=== PATIENT | male | born 1960 | race Caucasian/White ===

== ENCOUNTER → 2023-09-13 | Outpatient (CLI) | payer OTHER ==
[~2023-09-13] MED LIST: ARTIFICIAL TEAR15 M6 BOTHEYES; CEPH500 PO; Calcium Acetat667 MG PO; HYDACE5 PO; MIDODRINE HCL10 M1 PO; MULVITB PO; Percocet 5-3251 EACH PO; SENN187 PO; TAMSULOSIN HCL0.4 M1 PO; Vitamin D1000 UNI1 PO
== END | disposition home or self-care (01) ==
LOC: LAB 16:51 → LAB SHORT 16:51
DX: R33.9 Retention of urine, unspecified (principal)
CPT/HCPCS: 87086

== ENCOUNTER 2023-09-18 08:02 | Day surgery (SDC) | payer OTHER ==
[~2023-09-18] VITALS: Ht 172.7 cm; Wt 66.0 kg
[2023-09-18] MEDS ORDERED: LUPRON DEPOT45 M1 IM (08:22)
[2023-09-18] MEDS ORDERED: Rena-Vite Tabl0.8 MG PO ×2 (08:23→08:53)
[2023-09-18 08:40] VITALS: BP 106/70
[2023-09-18] MEDS ORDERED: SULFAMETHOXAZO1 EAC1 PO (08:54)
[2023-09-18] MEDS ORDERED: NS 1,000 ML IV ONE (09:55)
[2023-09-18] MEDS ORDERED: NS 500 ML IV ONE (10:08)
[2023-09-18] MEDS ORDERED: FentaNYL Citrate 50 MCG/ML 2 ML Injection ONE (10:22)
[2023-09-18] MEDS ORDERED: Midazolam HCl 1MG / ML 2ML Vial ONE (10:23)
[2023-09-18 11:19] VITALS: BP 115/63
--- NOTE | 2023-09-18 11:45 | NUR ---
PT AND S/O VERBALIZES UNDERSTANDING WRITTEN AND VERBAL INSTRUCTIONS. PT DENIES QUESTIONS OR CONCERNS. VSS. NADN. PT BILATERAL NEPH TUBES IN PLACE, C/D/I. PT IV DC'D. CATH INTACT. PRESSURE DSG APPLIED. PT DC TO HOME VIA WC BY S/O
== END 2023-09-18 12:00 | disposition home or self-care (01) ==
LOC: MHTC 08:02
DX: Z43.6 Encounter for attention to other artificial openings of urinary tract (principal); N13.30 Unspecified hydronephrosis; C61 Malignant neoplasm of prostate; N18.6 End stage renal disease
CPT/HCPCS: 50435; 99152; 99153; C1729; C1769; J2250; J3010; J7030; J7040; Q9967

== ENCOUNTER 2024-01-25 06:04 | Day surgery (SDC) | payer OTHER ==
[~2024-01-25] VITALS: Ht 172.7 cm; Wt 64.0 kg
[~2024-01-25 06:04] MED LIST changes: +LUPRON DEPOT45 M1 IM; +Rena-Vite Tabl0.8 MG PO; +SULFAMETHOXAZO1 EAC1 PO
[2024-01-25] MEDS ORDERED: PRED5 PO (06:55)
[2024-01-25] MEDS ORDERED: YONSA125 MG PO (06:56)
[2024-01-25] MEDS ORDERED: ROLAIDS ADV 101 EACH PO (06:58)
[2024-01-25] MEDS ORDERED: NS 250 ML IV ONE (06:58)
[2024-01-25 07:01] VITALS: BP 166/79
[2024-01-25 08:40] VITALS: BP 169/92
--- NOTE | 2024-01-25 08:45 | NUR ---
ASSUMED CARE OF PT POST PROCEDURE. PT AWAKE AND CONVERSING APPROPRIATELY (NO SEDATION GIVEN); DENIES PAIN POST PROCEDURE. MONITOR SR 70'S, B/P 169/92, SPO2 99 % RA. R FLANK NEPH TUBE SITE NO SWELLING/HEMATOMA, CONNECTED TO DRAIN BAG-DRAINING YELLOW URINE. L NEPH TUBE SITE NO SWELLING/HEMATOMA, CONNECTED TO DRAIN BAG-DRAINING YELLOW URINE. PT'S AT BEDSIDE, ATTENTIVE.
--- NOTE | 2024-01-25 08:55 | NUR ---
PT DRESSED SELF WITHOUT ISSUE, SITES UNCHANGED. PT AND RECEIVED DISCHARGE INSTRUCTIONS, MED LIST AND AFTER CARE INSTRUCTIONS; VERBALIZED GOOD UNDERSTANDING. PT LEFT FACILITY VIA AMB, CONDITION STABLE.
== END 2024-01-25 08:55 | disposition home or self-care (01) ==
LOC: MHTC 06:04
DX: Z43.6 Encounter for attention to other artificial openings of urinary tract (principal); N13.30 Unspecified hydronephrosis; C61 Malignant neoplasm of prostate; Z79.52 Long term (current) use of systemic steroids; Z79.899 Other long term (current) drug therapy
CPT/HCPCS: 50435; C1729; C1769; J7050; Q9967

== ENCOUNTER 2024-04-18 06:01 | Day surgery (SDC) | payer MEDICARE, OTHER ==
[~2024-04-18] VITALS: Ht 20.3 cm; Wt 66.0 kg
[~2024-04-18 06:01] MED LIST changes: +PRED5 PO; +ROLAIDS ADV 101 EACH PO; +YONSA125 MG PO
[2024-04-18 06:31] VITALS: BP 138/78
[2024-04-18] MEDS ORDERED: NS 250 ML IV ONE (06:32)
[2024-04-18] MEDS ORDERED: FLUT.05NI (06:38)
[2024-04-18] MEDS ORDERED: Amlodipine Bes2.5 MG PO (06:39)
[2024-04-18 06:41] VITALS: BP 138/78
[2024-04-18 06:45] VITALS: BP 134/75
[2024-04-18 07:45] VITALS: BP 178/83
--- NOTE | 2024-04-18 07:50 | NUR ---
PATIENT DISCHARGED HOME. VERBAL DISCHARGE INSTRUCTIONS GIVEN. BILATERAL NEPH TUBES IN PLACE. VSS ON RA. NO SEDATION GIVEN, PATIENT ABLE TO AMBULATE WITHOUT DIFFICULTY.
== END 2024-04-18 09:33 | disposition home or self-care (01) ==
LOC: MHTC 06:01
DX: Z43.6 Encounter for attention to other artificial openings of urinary tract (principal); N13.30 Unspecified hydronephrosis; C61 Malignant neoplasm of prostate
CPT/HCPCS: 50435; C1729; C1769; J7050; Q9967

== ENCOUNTER → 2024-05-16 | Outpatient (CLI) | payer OTHER ==
[~2024-05-16] MED LIST changes: +Amlodipine Bes2.5 MG PO; +FLUT.05NI
[2024-05-16 09:48] LABS: BASOPHILS ABSOLUTE AUTO 0.02 K/mm3 (0.00-0.23); BASOPHILS PERCENT AUTO 1 % (0-2); EOSINOPHILS ABSOLUTE AUTO 0.05 K/mm3 (0.00-0.68); EOSINOPHILS PERCENT AUTO 3 % (0-6); Hematocrit 24.5 % (37.0-53.0); Hemoglobin 8.3 g/dL (13.5-17.5); IMMATURE GRAN ABSOLUTE AUTO 0.04 K/mm3 (0.00-0.10); IMMATURE GRAN PERCENT AUTO 2 % (0-1); LYMPHOCYTES ABSOLUTE AUTO 1.03 K/mm3 (0.84-5.20); LYMPHOCYTES PERCENT AUTO 60 % (21-46); MONOCYTES ABSOLUTE AUTO 0.25 K/mm3 (0.16-1.47); MONOCYTES PERCENT AUTO 15 % (4-13); Mean Corpuscular HGB 34.4 pg (26.0-34.0); Mean Corpuscular HGB Conc 33.9 g/dL (31.5-36.5); Mean Corpuscular Volume 102 fL (80-100); Mean Platelet Volume 11.1 fL (9.1-12.4); NEUTROPHILS ABSOLUTE AUTO 0.33 K/mm3 (1.96-9.15); NEUTROPHILS PERCENT AUTO 19 % (41-73); Platelet Count 179 K/mm3 (150-400); RDW Coefficient Variation 15.7 % (11.7-14.2); RDW Standard Deviation 57.8 fL (35.1-46.3); Red Blood Cell Count 2.41 M/mm3 (4.30-5.90); White Blood Cell Count 1.72 K/mm3 (4.00-11.30)
[2024-05-16 09:56] LABS: Alanine Aminotransfer (ALT/SGP 22 U/L (12-78); Albumin, Blood 3.4 g/dL (3.4-5.0); Albumin/Globulin Ratio 1.1 (0.8-1.8); Alk Phos 49 U/L (50-136); Anion Gap 12 mmol/L (3-11); Aspartate Aminotrans (AST/SGOT 14 U/L (12-37); Bilirubin, Total 0.3 mg/dL (0.1-1.0); Blood Urea Nitrogen 40 mg/dL (8-24); Bun/Creatinine Ratio 6.3 (12.0-20.0); CO2, Blood 32 mmol/L (21-32); Calcium, Blood 9.5 mg/dL (8.5-10.1); Chloride, Blood 96 mmol/L (98-108); Creatinine, Blood 6.39 mg/dL (0.60-1.20); Globulin, Blood 3.1 g/dL (2.2-4.0); Glomerular Filtration Rate 9 (60-); Glucose, Blood 95 mg/dL (70-99); Potassium, Blood 3.7 mmol/L (3.5-5.5); Prostate Specific Antigen 0.172 ng/mL (0.000-4.000); Sodium, Blood 136 mmol/L (136-145); Total Protein, Blood 6.5 g/dL (6.4-8.2)
== END ==
LOC: LAB 09:19 → LAB SHORT 09:19
PROVIDERS: Internal Medicine Hematology & Oncology
DX: C61 Malignant neoplasm of prostate (principal); C79.51 Secondary malignant neoplasm of bone
CPT/HCPCS: 80053; 84153; 85025

== ENCOUNTER → 2024-05-19 | Outpatient (CLI) | payer OTHER ==
[2024-05-19 09:08] LABS: Hematocrit 27.5 % (37.0-53.0); Hemoglobin 9.3 g/dL (13.5-17.5); Mean Corpuscular HGB 33.8 pg (26.0-34.0); Mean Corpuscular HGB Conc 33.8 g/dL (31.5-36.5); Mean Corpuscular Volume 100 fL (80-100); Mean Platelet Volume 10.8 fL (9.1-12.4); Platelet Count 211 K/mm3 (150-400); RDW Coefficient Variation 15.5 % (11.7-14.2); RDW Standard Deviation 57.6 fL (35.1-46.3); Red Blood Cell Count 2.75 M/mm3 (4.30-5.90); White Blood Cell Count 4.25 K/mm3 (4.00-11.30)
[2024-05-19 09:29] LABS: Alanine Aminotransfer (ALT/SGP 21 U/L (12-78); Albumin, Blood 3.5 g/dL (3.4-5.0); Albumin/Globulin Ratio 1.1 (0.8-1.8); Alk Phos 53 U/L (50-136); Anion Gap 12 mmol/L (3-11); Aspartate Aminotrans (AST/SGOT 17 U/L (12-37); BAND PERCENT MAN 4 % (0-8); BASOPHILS ABSOLUTE MAN 0.04 K/mm3 (0.00-0.23); BASOPHILS PERCENT MAN 1 % (0-2); BLASTS PERCENT MAN 1 % (0-0); Bilirubin, Total 0.3 mg/dL (0.1-1.0); Blood Urea Nitrogen 65 mg/dL (8-24); Bun/Creatinine Ratio 8.7 (12.0-20.0); CO2, Blood 30 mmol/L (21-32); Calcium, Blood 9.4 mg/dL (8.5-10.1); Chloride, Blood 99 mmol/L (98-108); Creatinine, Blood 7.48 mg/dL (0.60-1.20); EOSINOPHILS PERCENT MAN 0 % (0-6); Globulin, Blood 3.2 g/dL (2.2-4.0); Glomerular Filtration Rate 8 (60-); Glucose, Blood 107 mg/dL (70-99); LYMPHOCYTES ABSOLUTE MAN 1.99 K/mm3 (0.84-5.20); LYMPHOCYTES PERCENT MAN 47 % (21-46); METAMYELOCYTE ABSOLUTE MAN 0.21 K/mm3 (0.00-0.00); METAMYELOCYTE PERCENT MAN 5 % (0-0); MONOCYTES ABSOLUTE MAN 0.29 K/mm3 (0.16-1.47); MONOCYTES PERCENT MAN 7 % (4-13); MYELOCYTE ABSOLUTE MAN 0.72 K/mm3 (0.00-0.00); MYELOCYTE PERCENT MAN 17 % (0-0); NEUTROPHILS ABSOLUTE MAN 0.85 K/mm3 (1.96-9.15); PROMYELOCYTE ABSOLUTE MAN 0.08 K/mm3 (0.00-0.00); PROMYELOCYTE PERCENT MAN 2 % (0-0); Potassium, Blood 3.5 mmol/L (3.5-5.5); Prostate Specific Antigen 0.169 ng/mL (0.000-4.000); SEG NEUTROPHILS PERCENT MAN 16 % (41-73); Sodium, Blood 137 mmol/L (136-145); TOTAL CELLS COUNTED 100; Total Protein, Blood 6.7 g/dL (6.4-8.2)
== END ==
LOC: LAB 08:30 → LAB SHORT 08:30
PROVIDERS: Internal Medicine Hematology & Oncology
DX: C61 Malignant neoplasm of prostate (principal); C79.51 Secondary malignant neoplasm of bone
CPT/HCPCS: 80053; 84153; 85025

== ENCOUNTER → 2024-05-30 | Outpatient (CLI) | payer OTHER ==
[2024-05-30 10:55] LABS: Hematocrit 23.2 % (37.0-53.0); Hemoglobin 7.8 g/dL (13.5-17.5); Mean Corpuscular HGB 34.2 pg (26.0-34.0); Mean Corpuscular HGB Conc 33.6 g/dL (31.5-36.5); Mean Corpuscular Volume 102 fL (80-100); Mean Platelet Volume 11.7 fL (9.1-12.4); Platelet Count 134 K/mm3 (150-400); RDW Standard Deviation 57.5 fL (35.1-46.3); Red Blood Cell Count 2.28 M/mm3 (4.30-5.90); White Blood Cell Count 31.99 K/mm3 (4.00-11.30)
[2024-05-30 11:37] LABS: BASOPHILS PERCENT MAN 0 % (0-2); EOSINOPHILS PERCENT MAN 0 % (0-6); LYMPHOCYTES ABSOLUTE MAN 0.31 K/mm3 (0.84-5.20); LYMPHOCYTES PERCENT MAN 1 % (21-46); MONOCYTES PERCENT MAN 0 % (4-13); NEUTROPHILS ABSOLUTE MAN 31.67 K/mm3 (1.96-9.15); SEG NEUTROPHILS PERCENT MAN 99 % (41-73); TOTAL CELLS COUNTED 100
[2024-05-30 12:39] LABS: Alanine Aminotransfer (ALT/SGP 19 U/L (12-78); Albumin, Blood 3.3 g/dL (3.4-5.0); Albumin/Globulin Ratio 1.2 (0.8-1.8); Alk Phos 104 U/L (50-136); Anion Gap 15 mmol/L (3-11); Aspartate Aminotrans (AST/SGOT 19 U/L (12-37); Bilirubin, Total 0.5 mg/dL (0.1-1.0); Blood Urea Nitrogen 41 mg/dL (8-24); Bun/Creatinine Ratio 10.2 (12.0-20.0); CO2, Blood 28 mmol/L (21-32); Calcium, Blood 8.8 mg/dL (8.5-10.1); Chloride, Blood 96 mmol/L (98-108); Creatinine, Blood 4.03 mg/dL (0.60-1.20); Globulin, Blood 2.7 g/dL (2.2-4.0); Glomerular Filtration Rate 16 (60-); Glucose, Blood 95 mg/dL (70-99); Potassium, Blood 3.6 mmol/L (3.5-5.5); Prostate Specific Antigen 0.154 ng/mL (0.000-4.000); Sodium, Blood 135 mmol/L (136-145)
== END | disposition home or self-care (01) ==
LOC: LAB 08:45 → LAB SHORT 08:45
PROVIDERS: Internal Medicine Nephrology
DX: C61 Malignant neoplasm of prostate (principal); N18.9 Chronic kidney disease, unspecified
CPT/HCPCS: 80053; 84153; 85025

== ENCOUNTER → 2024-06-06 | Outpatient (CLI) | payer OTHER ==
[2024-06-06 08:05] LABS: Hemoglobin 8.1 g/dL (13.5-17.5); Mean Corpuscular HGB 34.8 pg (26.0-34.0); Mean Corpuscular HGB Conc 33.8 g/dL (31.5-36.5); Mean Corpuscular Volume 103 fL (80-100); Mean Platelet Volume 11.4 fL (9.1-12.4); NRBC ABSOLUTE 0.06 K/mm3 (0.00-0.02); NRBC Auto 0.1 /100 WBC (0.0-0.2); Platelet Count 246 K/mm3 (150-400); RDW Coefficient Variation 16.8 % (11.7-14.2); RDW Standard Deviation 61.8 fL (35.1-46.3); Red Blood Cell Count 2.33 M/mm3 (4.30-5.90); White Blood Cell Count 41.45 K/mm3 (4.00-11.30)
[2024-06-06 08:32] LABS: BASOPHILS PERCENT MAN 0 % (0-2); EOSINOPHILS PERCENT MAN 0 % (0-6); MONOCYTES ABSOLUTE MAN 2.07 K/mm3 (0.16-1.47); MONOCYTES PERCENT MAN 5 % (4-13); TOTAL CELLS COUNTED 100
[2024-06-06 08:33] LABS: PROMYELOCYTE ABSOLUTE MAN 0.82 K/mm3 (0.00-0.00); PROMYELOCYTE PERCENT MAN 2 % (0-0)
[2024-06-06 08:35] LABS: BAND PERCENT MAN 6 % (0-8); BLASTS PERCENT MAN 1 % (0-0); LYMPHOCYTES ABSOLUTE MAN 3.73 K/mm3 (0.84-5.20); LYMPHOCYTES PERCENT MAN 9 % (21-46); METAMYELOCYTE PERCENT MAN 7 % (0-0); MYELOCYTE ABSOLUTE MAN 1.65 K/mm3 (0.00-0.00); MYELOCYTE PERCENT MAN 4 % (0-0); NEUTROPHILS ABSOLUTE MAN 29.84 K/mm3 (1.96-9.15); SEG NEUTROPHILS PERCENT MAN 66 % (41-73)
[2024-06-06 08:37] LABS: Prostate Specific Antigen 0.157 ng/mL (0.000-4.000)
[2024-06-06 08:38] LABS: Alanine Aminotransfer (ALT/SGP 21 U/L (12-78); Albumin, Blood 3.7 g/dL (3.4-5.0); Albumin/Globulin Ratio 1.3 (0.8-1.8); Alk Phos 95 U/L (50-136); Anion Gap 9 mmol/L (3-11); Aspartate Aminotrans (AST/SGOT 28 U/L (12-37); Bilirubin, Total 0.3 mg/dL (0.1-1.0); Blood Urea Nitrogen 46 mg/dL (8-24); CO2, Blood 32 mmol/L (21-32); Calcium, Blood 8.8 mg/dL (8.5-10.1); Chloride, Blood 97 mmol/L (98-108); Creatinine, Blood 6.53 mg/dL (0.60-1.20); Globulin, Blood 2.9 g/dL (2.2-4.0); Glomerular Filtration Rate 9 (60-); Glucose, Blood 113 mg/dL (70-99); Sodium, Blood 134 mmol/L (136-145); Total Protein, Blood 6.6 g/dL (6.4-8.2)
== END ==
LOC: LAB SHORT 07:00 → LAB 07:00
PROVIDERS: Internal Medicine Hematology & Oncology
DX: C61 Malignant neoplasm of prostate (principal)
CPT/HCPCS: 80053; 84153; 85025

== ENCOUNTER → 2024-06-18 | Outpatient (CLI) | payer OTHER ==
[~2024-06-18] MED LIST changes: +ELIGARD7.5 MG SC
== END ==
LOC: LAB 09:15 → LAB SHORT 09:15
DX: N18.6 End stage renal disease (principal); D64.9 Anemia, unspecified
CPT/HCPCS: 85018

== ENCOUNTER 2024-06-22 00:34 | Day surgery (SDC) | payer OTHER ==
[2024-06-22] VITALS (7 sets, daily range): BP systolic 104–153; BP diastolic 58–73
[~2024-06-22 00:34] MED LIST changes: -ELIGARD7.5 MG SC
[2024-06-22] MEDS ORDERED: NS 250 ML IV SCH (06:50)
[2024-06-22] MEDS ORDERED: SENN187 PO (14:33)
[2024-06-22] MEDS ORDERED: ELIGARD7.5 MG SC (14:35)
--- NOTE | 2024-06-22 17:55 | NUR ---
PT ESCORTED TO PRIVATE CAR VIA WHEELCHAIR BY .
== END 2024-06-22 17:32 | disposition home or self-care (01) ==
LOC: ATC 00:34
DX: N18.6 End stage renal disease (principal); D63.1 Anemia in chronic kidney disease; Z79.899 Other long term (current) drug therapy
CPT/HCPCS: 36415; 36430; 86850; 86900; 86901; 86923; J7050; P9016

== ENCOUNTER 2024-06-27 12:47 | Observation (INO) | payer OTHER ==
[~2024-06-27] VITALS: Ht 170.2 cm; Wt 63.6 kg
[~2024-06-27 12:47] MED LIST changes: +ELIGARD7.5 MG SC
[2024-06-27 14:04] LABS: Hematocrit 27.9 % (37.0-53.0); Hemoglobin 9.2 g/dL (13.5-17.5); Mean Corpuscular HGB 33.7 pg (26.0-34.0); Mean Corpuscular Volume 102 fL (80-100); Mean Platelet Volume 10.5 fL (9.1-12.4); NRBC ABSOLUTE 0.03 K/mm3 (0.00-0.02); Platelet Count 187 K/mm3 (150-400); RDW Coefficient Variation 15.9 % (11.7-14.2); RDW Standard Deviation 58.4 fL (35.1-46.3); Red Blood Cell Count 2.73 M/mm3 (4.30-5.90)
[2024-06-27 14:09] LABS: Albumin, Blood 3.5 g/dL (3.4-5.0); Albumin/Globulin Ratio 1.1 (0.8-1.8); Bilirubin, Total 0.3 mg/dL (0.1-1.0); Bun/Creatinine Ratio 3.7 (12.0-20.0); Calcium, Blood 8.9 mg/dL (8.5-10.1); Creatinine, Blood 2.43 mg/dL (0.60-1.20); Globulin, Blood 3.3 g/dL (2.2-4.0); Potassium, Blood 3.4 mmol/L (3.5-5.5); Total Protein, Blood 6.8 g/dL (6.4-8.2)
[2024-06-27 14:11] LABS: White Blood Cell Count 61.99 K/mm3 (4.00-11.30)
[2024-06-27 14:13] LABS: International Normalized Ratio 0.91; Prothrombin Time Results 9.8 Sec (9.7-11.5)
[2024-06-27 14:24] LABS: BAND PERCENT MAN 13 % (0-8); BASOPHILS PERCENT MAN 0 % (0-2); EOSINOPHILS PERCENT MAN 0 % (0-6); LYMPHOCYTES ABSOLUTE MAN 1.85 K/mm3 (0.84-5.20); LYMPHOCYTES PERCENT MAN 3 % (21-46); METAMYELOCYTE ABSOLUTE MAN 1.85 K/mm3 (0.00-0.00); METAMYELOCYTE PERCENT MAN 3 % (0-0); MONOCYTES PERCENT MAN 0 % (4-13); NEUTROPHILS ABSOLUTE MAN 53.93 K/mm3 (1.96-9.15); SEG NEUTROPHILS PERCENT MAN 74 % (41-73); TOTAL CELLS COUNTED 100
[2024-06-27 14:25] LABS: MYELOCYTE ABSOLUTE MAN 3.09 K/mm3 (0.00-0.00); MYELOCYTE PERCENT MAN 5 % (0-0); PROMYELOCYTE ABSOLUTE MAN 1.23 K/mm3 (0.00-0.00); PROMYELOCYTE PERCENT MAN 2 % (0-0)
[2024-06-27] MEDS ORDERED: ONDA4 PO (14:25)
[2024-06-27] MEDS ORDERED: SEVEC800 PO (14:26)
[2024-06-27] MEDS ORDERED: Pantoprazole Sodium 40 MG Injection IV ONE (15:55)
[2024-06-27] MEDS ORDERED: Midodrine 5 MG Tab PO PRN (17:20)
[2024-06-27] MEDS ORDERED: AmLODIPine Besylate 5 MG Tab PO PRN (17:20)
[2024-06-27] MEDS ORDERED: Sevelamer Carbonate 800 MG Tab PO SCH (17:30)
[2024-06-27] MEDS ORDERED: Tamsulosin HCl 0.4 MG Cap PO SCH (18:00)
[2024-06-27 21:14] VITALS: BP 136/82
--- NOTE | 2024-06-27 21:41 | NUR ---
PATIENT IS A NEW ADMIT FROM THE ED. ALERT ORIENTED WITH SELF TRANSFER FROM [facility] TO BED. ED RN SOHEILA REPORTS BILATERAL NEPHROSTOMY TUBES AND SOTOMAYOR WITH LEG BAG, SELF CARE. DENIES CHEST PAIN, SOB, AND N/V. PERMA CATH RU CHEST. NPO >MIDNIGHT FOR ENDOSCOPY. FAMILY PRESENT ON ADMIT. SPOUSE REPORTING SHE WILL STAY OVERNIGHT. ORIENTED TO ROOM AND CALL LIGHT. LADY.
--- NOTE | 2024-06-27 22:16 | NUR ---
ONCOLOGY CONSULT CALLED INTO DR CRISTIN THAKKAR ([facility]) ANSWERING SERVICE.
--- NOTE | 2024-06-28 04:02 | NUR ---
SHIFT SUMMARY PATIENT HAD NO ACUTE CHANGES. ALERT ORIENTED AND INDEPENDENT IN ROOM . DENIES CHEST PAIN, SOB, AND N/V. VSS/AFEBRILE. NPO FOR PROCEDURE. PERMA CATH RIGHT UPPER CHEST. SPOUSE STAYING OVERNIGHT. CALL LIGHT IN REACH. BED IN LOWEST POSITION. WILL CONTINUE TO MONITOR UNTIL DAY SHIFT NURSE ASSUMES CARE.
[2024-06-28 04:36] VITALS: BP 126/62
[2024-06-28] MEDS ORDERED: Pantoprazole Sodium 40 MG Injection IV SCH (06:00)
[2024-06-28 07:02] LABS: Hematocrit 29.4 % (37.0-53.0); Hemoglobin 9.6 g/dL (13.5-17.5); Mean Corpuscular HGB 33.8 pg (26.0-34.0); Mean Corpuscular HGB Conc 32.7 g/dL (31.5-36.5); Mean Corpuscular Volume 104 fL (80-100); Mean Platelet Volume 10.4 fL (9.1-12.4); Platelet Count 163 K/mm3 (150-400); RDW Coefficient Variation 15.8 % (11.7-14.2); Red Blood Cell Count 2.84 M/mm3 (4.30-5.90); White Blood Cell Count 44.11 K/mm3 (4.00-11.30)
[2024-06-28 07:10] VITALS: BP 142/72
[2024-06-28 07:39] LABS: BAND PERCENT MAN 8 % (0-8); BASOPHILS PERCENT MAN 0 % (0-2); EOSINOPHILS PERCENT MAN 1 % (0-6); LYMPHOCYTES PERCENT MAN 13 % (21-46); METAMYELOCYTE PERCENT MAN 11 % (0-0); MONOCYTES PERCENT MAN 0 % (4-13); MYELOCYTE PERCENT MAN 3 % (0-0); PROMYELOCYTE PERCENT MAN 1 % (0-0); SEG NEUTROPHILS PERCENT MAN 63 % (41-73); TOTAL CELLS COUNTED 100
[2024-06-28 07:41] LABS: Bun/Creatinine Ratio 5.1 (12.0-20.0); Creatinine, Blood 3.9 mg/dL (0.60-1.20); Potassium, Blood 3.4 mmol/L (3.5-5.5)
[2024-06-28] MEDS ORDERED: OxyCODONE 5 mg/Acetamin 325 mg TABLET PO PRN (08:00)
[2024-06-28] MEDS ORDERED: ABIRATERONE PO SCH (09:00)
[2024-06-28] MEDS ORDERED: Cholecalciferol 1000 Unit Tablet (=25MCG) PO SCH (09:00)
[2024-06-28] MEDS ORDERED: Potassium Chloride 20 MEQ TabCR PO ONE (09:35)
[2024-06-28] MEDS ORDERED: Lactated Ringer's 1,000 ML IV SCH (11:40)
--- NOTE | 2024-06-28 12:02 | NUR ---
SPOKE TO DR CHA- PT HAD A DOSE OF POTASSIUM ORDERED AFTER HE RECIEVED AM MEDS. DOSE WAS LATE. SPOKE TO DR CHA AND HE SAID TO WAIT UNTIL AFTER THE PROCEDURE, THEN GIVE THE DOSE.
[2024-06-28 12:09] VITALS: BP 131/80
--- NOTE | 2024-06-28 12:14 | NUR ---
PATIENT ADMITS TO EATING A BITE OF A DONUT AND SIPS OF WATER AT [address] CHA AND ANESTHESIA PROVIDER, KATT ZUNIGA NOTIFIED OF NPO STATUS. NO NEW ORDERS OR PLAN TO DELAY PROCEDURE.
[2024-06-28] MEDS ORDERED: NS 1,000 ML IV SCH (12:20)
[2024-06-28] MEDS ORDERED: propofoL 20 ML IV ONE (12:32)
--- NOTE | 2024-06-28 12:34 | NUR ---
06/28/24 1234 Nika Tuttle MONITOR INTACT WITH CONTINUOUS PULSE OXIMETRY, CONTINUOUS END TITAL CO2, 3-LEAD EKG AND INTERMITTENT BLOOD PRESSURE.
[2024-06-28 12:48] VITALS: BP 113/64
[2024-06-28] MEDS ORDERED: Potassium Chloride 10 Meq Tablet SA PO ONE (13:00)
[2024-06-28 13:04] VITALS: BP 143/77
[2024-06-28] MEDS ORDERED: PANT40 PO (13:25)
--- NOTE | 2024-06-28 14:48 | NUR ---
DISCHARGE NOTE- PT DISCHARGED HOME. VERBAL AND WRITTEN DISCHARGE EDUCATION PROVIDED AND THE PT AND SPOUSE ACKNOWLEDGED UNDERSATANDING OF THEM. PT IV WAS DC'D PRIRO TO DISCHARGE BY THE [employer]EL[employer]. PT DECLINED ANY FURTHER MEDS OR TREATMENT. PT WAS ESCORTED OUT VIA WC BY THE [employer]ELOPER, NO S&S OF DISTRESS NOTED AT THE TIME OF DISCHARGE.
[2024-06-28] MEDS ORDERED: Pantoprazole Sodium 40 MG Tab PO SCH (16:30)
== END 2024-06-28 14:13 | disposition home or self-care (01) ==
LOC: ER 12:47 → ERHOLD 12:48 → ER 17:15 → MEDS 17:15 → ERHOLD 17:15 → MEDS 17:15 → ERHOLD 21:11 → MEDS 06-28 14:13
PROVIDERS: Student in an Organized Health Care Education/Training Program; Surgery; ADMIT Family Medicine
PROC: 0DB68ZX Excision of Stomach, Via Natural or Artificial Opening Endoscopic, Diagnostic (ICD-10-PCS; principal; 2024-06-28 12:00)
DX: K25.9 Gastric ulcer, unspecified as acute or chronic, without hemorrhage or perforation (principal); D64.9 Anemia, unspecified; N18.6 End stage renal disease; Z99.2 Dependence on renal dialysis; Z79.899 Other long term (current) drug therapy
CPT/HCPCS: 36415; 80048; 80053; 82272; 85025; 85610; 85730; 86850; 86900; 86901; 88305; 88342; 96374; 96376; 99285-25; A9270; G0378; J2470; J2704; J7030

== ENCOUNTER 2024-07-03 20:25 | Emergency (ER) | payer OTHER ==
[~2024-07-03] VITALS: Ht 172.7 cm; Wt 70.3 kg
[~2024-07-03 20:25] MED LIST changes: +ONDA4 PO; +PANT40 PO; +SEVEC800 PO
[2024-07-03] MEDS ORDERED: Acetaminophen 500 MG Tab PO ONE (20:50)
[2024-07-03 21:12] LABS: Hematocrit 25.3 % (37.0-53.0); Hemoglobin 8.2 g/dL (13.5-17.5); Mean Corpuscular HGB 32.5 pg (26.0-34.0); Mean Corpuscular HGB Conc 32.4 g/dL (31.5-36.5); Mean Corpuscular Volume 100 fL (80-100); Mean Platelet Volume 11.3 fL (9.1-12.4); Platelet Count 99 K/mm3 (150-400); RDW Coefficient Variation 15.5 % (11.7-14.2); RDW Standard Deviation 56.4 fL (35.1-46.3); Red Blood Cell Count 2.52 M/mm3 (4.30-5.90); White Blood Cell Count 16.44 K/mm3 (4.00-11.30)
[2024-07-03 21:27] LABS: Albumin, Blood 3.4 g/dL (3.4-5.0); Albumin/Globulin Ratio 1.1 (0.8-1.8); Bilirubin, Total 0.5 mg/dL (0.1-1.0); Bun/Creatinine Ratio 4.4 (12.0-20.0); Calcium, Blood 9.3 mg/dL (8.5-10.1); Creatinine, Blood 5.46 mg/dL (0.60-1.20); Globulin, Blood 3.1 g/dL (2.2-4.0); Potassium, Blood 3.7 mmol/L (3.5-5.5); Total Protein, Blood 6.5 g/dL (6.4-8.2)
[2024-07-03 21:51] LABS: BASOPHILS PERCENT MAN 0 % (0-2); EOSINOPHILS ABSOLUTE MAN 0.16 K/mm3 (0.00-0.68); EOSINOPHILS PERCENT MAN 1 % (0-6); LYMPHOCYTES ABSOLUTE MAN 1.31 K/mm3 (0.84-5.20); LYMPHOCYTES PERCENT MAN 8 % (21-46); TOTAL CELLS COUNTED 100
[2024-07-03 21:52] LABS: BAND PERCENT MAN 3 % (0-8); METAMYELOCYTE ABSOLUTE MAN 0.16 K/mm3 (0.00-0.00); METAMYELOCYTE PERCENT MAN 1 % (0-0); MONOCYTES ABSOLUTE MAN 0.32 K/mm3 (0.16-1.47); MONOCYTES PERCENT MAN 2 % (4-13); MYELOCYTE ABSOLUTE MAN 0.49 K/mm3 (0.00-0.00); MYELOCYTE PERCENT MAN 3 % (0-0); NEUTROPHILS ABSOLUTE MAN 13.97 K/mm3 (1.96-9.15); SEG NEUTROPHILS PERCENT MAN 82 % (41-73)
[2024-07-04] MEDS ORDERED: Ondansetron HCl 2 MG / ML 2ML Vial IV ONE (03:55)
[2024-07-04] MEDS ORDERED: FentaNYL Citrate 50 MCG/ML 2 ML Injection IV PRN (04:10)
[2024-07-04 05:27] LABS: Source, Urine Foley catheter
[2024-07-04 05:33] LABS: Appearance, Urine Turbid (Clear); Bilirubin, Urine Neg (Neg); Blood, Urine 5+ (Neg); Color, Urine Yellow (P-Yellow); Glucose Qualitative, Urine Neg (Neg); Ketones, Urine Neg (Neg); Leukocyte Esterase, Urine 3+ (Neg); Nitrite, Urine Neg (Neg); Protein, Urine 4+ (Neg); Specific Gravity, Urine 1.015 (1.003-1.022); Urobilinogen, Urine NORM (Normal)
[2024-07-04 05:48] LABS: Amorphous Light (0-Heavy); Bacteria Many /hpf; Red Blood Cells, Urine 50-100 /hpf (0-2); Squamous Epithelial Cells Rare /hpf (Few); White Blood Cells, Urine 50-100 /hpf (0-5)
[2024-07-04] MEDS ORDERED: Cefpodoxime Proxetil 200 MG Tab PO ONE (05:55)
[2024-07-04] MEDS ORDERED: ONDA4ODT MM (05:56)
[2024-07-04] MEDS ORDERED: CEFP200 PO (05:56)
[2024-07-04] MEDS ORDERED: CIPR500 PO (06:12)
== END 2024-07-04 06:19 | disposition home or self-care (01) ==
LOC: ER 20:25
PROVIDERS: Emergency Medicine
DX: T83.511A Infection and inflammatory reaction due to indwelling urethral catheter, initial encounter (principal); D72.829 Elevated white blood cell count, unspecified; N18.6 End stage renal disease; Z99.2 Dependence on renal dialysis; Z79.899 Other long term (current) drug therapy; Z59.89 Other problems related to housing and economic circumstances
CPT/HCPCS: 36415; 74176; 80053; 81001; 83605; 85025; 87040; 87077; 87086; 87186; 96374; 99284-25; J2405

== ENCOUNTER → 2024-07-04 | Outpatient (CLI) | payer OTHER ==
[~2024-07-04] MED LIST changes: +CEFP200 PO; +CIPR500 PO; +ONDA4ODT MM
== END | disposition home or self-care (01) ==
LOC: LAB SHORT 11:05 → LAB 11:05
DX: A49.9 Bacterial infection, unspecified (principal)
CPT/HCPCS: 87040

== ENCOUNTER 2024-10-14 13:30 | Day surgery (SDC) | payer OTHER ==
[~2024-10-14] VITALS: Ht 172.7 cm; Wt 63.5 kg
[~2024-10-14 13:30] MED LIST changes: +Glycopyrrolate 0.2 MG/ML 1MLVIAL ONE; +OXYC5 PO; +Ondansetron HCl 2 MG / ML 2ML Vial ONE; +ePHEDrine Sulfate 50 MG/ML 1ML Injection ONE
[2024-10-14] MEDS ORDERED: YONSA125 MG (13:50)
[2024-10-14] MEDS ORDERED: VITAMIN D (13:51)
[2024-10-14] MEDS ORDERED: Acetaminophen325 M1 (13:52)
[2024-10-14] MEDS ORDERED: NS 1,000 ML IV ONE ×2 (15:02→15:22)
--- NOTE | 2024-10-14 15:03 | NUR ---
10/14/24 1503 MARISOL MUNOZ AT BEDSIDE
[2024-10-14] MEDS ORDERED: Benzocaine Oral Spray 0.5ML UD ONE (17:34)
--- NOTE | 2024-10-14 17:56 | NUR ---
10/14/24 1756 Dg Bush History, Chart, Medications and Allergies reviewed before start of procedure. MONITOR INTACT WITH CONTINUOUS PULSE OXIMETRY, CONTINUOUS END TITAL CO2, 3-LEAD EKG AND INTERMITTENT BLOOD PRESSURE. 3-LEAD EKG REVIEWED WITH PHYSICIAN PRIOR TO START OF PROCEDURE. O2 VIA POM INTACT THROUGHOUT SEDATION/PROCEDURE. Bite Block Placed AT START OF PROCEDURE.
[2024-10-14 18:15] VITALS: BP 139/81
--- NOTE | 2024-10-14 20:22 | NUR ---
Discharge instructions reviewed with patient. Patient verbalizes understanding. Copy given to patient to take home. Discharged via wheelchair to private car for ride home.
== END 2024-10-14 18:46 | disposition home or self-care (01) ==
LOC: ORSCMMR 13:30 → ORSCSDS 13:30
PROVIDERS: Surgery
PROC: 0DB78ZX Excision of Stomach, Pylorus, Via Natural or Artificial Opening Endoscopic, Diagnostic (ICD-10-PCS; principal; 2024-10-14 17:00)
DX: K25.3 Acute gastric ulcer without hemorrhage or perforation (principal); Z99.2 Dependence on renal dialysis; I10 Essential (primary) hypertension; Z85.46 Personal history of malignant neoplasm of prostate; G47.33 Obstructive sleep apnea (adult) (pediatric); Z79.899 Other long term (current) drug therapy; N19 Unspecified kidney failure
CPT/HCPCS: 36415; 80048; 88305; A9270; J0461; J2003; J2405; J2704; J7030

== ENCOUNTER → 2024-11-19 | Outpatient (CLI) | payer OTHER ==
[~2024-11-19] MED LIST changes: +Acetaminophen325 M1; -Glycopyrrolate 0.2 MG/ML 1MLVIAL ONE; -Ondansetron HCl 2 MG / ML 2ML Vial ONE; +VITAMIN D; +YONSA125 MG; -ePHEDrine Sulfate 50 MG/ML 1ML Injection ONE
[2024-11-19 09:15] LABS: BASOPHILS ABSOLUTE AUTO 0.01 K/mm3 (0.00-0.23); BASOPHILS PERCENT AUTO 0 % (0-2); EOSINOPHILS ABSOLUTE AUTO 0.34 K/mm3 (0.00-0.68); EOSINOPHILS PERCENT AUTO 7 % (0-6); Hematocrit 29.3 % (37.0-53.0); Hemoglobin 9.6 g/dL (13.5-17.5); IMMATURE GRAN ABSOLUTE AUTO 0.02 K/mm3 (0.00-0.10); IMMATURE GRAN PERCENT AUTO 0 % (0-1); LYMPHOCYTES ABSOLUTE AUTO 2.12 K/mm3 (0.84-5.20); LYMPHOCYTES PERCENT AUTO 41 % (21-46); MONOCYTES ABSOLUTE AUTO 0.36 K/mm3 (0.16-1.47); MONOCYTES PERCENT AUTO 7 % (4-13); Mean Corpuscular HGB Conc 32.8 g/dL (31.5-36.5); Mean Corpuscular Volume 96 fL (80-100); NEUTROPHILS ABSOLUTE AUTO 2.32 K/mm3 (1.96-9.15); NEUTROPHILS PERCENT AUTO 45 % (41-73); NRBC ABSOLUTE 0.00 K/mm3 (0.00-0.02); NRBC Auto 0.0 /100 WBC (0.0-0.2); Platelet Count 145 K/mm3 (150-400); RDW Coefficient Variation 16.2 % (11.7-14.2); RDW Standard Deviation 57.3 fL (35.1-46.3)
[2024-11-19 09:30] LABS: Anion Gap 11 mmol/L (3-11); Blood Urea Nitrogen 45 mg/dL (8-24); CO2, Blood 29 mmol/L (21-32); Calcium, Blood 9.3 mg/dL (8.5-10.1); Chloride, Blood 100 mmol/L (98-108); Creatinine, Blood 7.65 mg/dL (0.60-1.20); Glucose, Blood 102 mg/dL (70-99); Potassium, Blood 2.9 mmol/L (3.5-5.5); Prostate Specific Antigen 0.075 ng/mL (0.000-4.000); Sodium, Blood 137 mmol/L (136-145)
== END ==
LOC: LAB SHORT 07:40 → LAB 07:40
PROVIDERS: Physician Assistant
DX: C79.51 Secondary malignant neoplasm of bone (principal); R97.20 Elevated prostate specific antigen [PSA]
CPT/HCPCS: 80048; 84153; 84403; 85025

== ENCOUNTER → 2025-02-04 | Outpatient (CLI) | payer OTHER ==
[2025-02-04 09:25] LABS: BASOPHILS ABSOLUTE AUTO 0.06 K/mm3 (0.00-0.23); BASOPHILS PERCENT AUTO 1 % (0-2); EOSINOPHILS ABSOLUTE AUTO 0.66 K/mm3 (0.00-0.68); EOSINOPHILS PERCENT AUTO 14 % (0-6); Hematocrit 30.9 % (37.0-53.0); Hemoglobin 10.4 g/dL (13.5-17.5); IMMATURE GRAN ABSOLUTE AUTO 0.02 K/mm3 (0.00-0.10); IMMATURE GRAN PERCENT AUTO 0 % (0-1); LYMPHOCYTES ABSOLUTE AUTO 1.65 K/mm3 (0.84-5.20); LYMPHOCYTES PERCENT AUTO 34 % (21-46); MONOCYTES ABSOLUTE AUTO 0.21 K/mm3 (0.16-1.47); MONOCYTES PERCENT AUTO 4 % (4-13); Mean Corpuscular HGB Conc 33.7 g/dL (31.5-36.5); Mean Corpuscular Volume 97 fL (80-100); NEUTROPHILS ABSOLUTE AUTO 2.21 K/mm3 (1.96-9.15); NEUTROPHILS PERCENT AUTO 46 % (41-73); NRBC ABSOLUTE 0.00 K/mm3 (0.00-0.02); NRBC Auto 0.0 /100 WBC (0.0-0.2); Platelet Count 222 K/mm3 (150-400); RDW Coefficient Variation 16.2 % (11.7-14.2); RDW Standard Deviation 57.9 fL (35.1-46.3)
[2025-02-04 10:38] LABS: Prostate Specific Antigen 0.031 ng/mL (0.000-4.000)
[2025-02-04 10:48] LABS: Anion Gap 13 mmol/L (3-11); Blood Urea Nitrogen 48 mg/dL (8-24); CO2, Blood 28 mmol/L (21-32); Calcium, Blood 11.1 mg/dL (8.5-10.1); Chloride, Blood 100 mmol/L (98-108); Creatinine, Blood 9.54 mg/dL (0.60-1.20); Glucose, Blood 104 mg/dL (70-99); Potassium, Blood 3.9 mmol/L (3.5-5.5); Sodium, Blood 137 mmol/L (136-145)
== END ==
LOC: LAB 08:30 → LAB SHORT 08:30
PROVIDERS: Physician Assistant
DX: C61 Malignant neoplasm of prostate (principal); C79.51 Secondary malignant neoplasm of bone
CPT/HCPCS: 80048; 84153; 85025

== ENCOUNTER 2025-03-02 15:48 | Emergency (ER) | payer OTHER ==
[~2025-03-02] VITALS: Ht 172.7 cm; Wt 72.6 kg
[2025-03-02 17:06] LABS: BASOPHILS ABSOLUTE AUTO 0.05 K/mm3 (0.00-0.23); BASOPHILS PERCENT AUTO 1 % (0-2); EOSINOPHILS ABSOLUTE AUTO 0.56 K/mm3 (0.00-0.68); EOSINOPHILS PERCENT AUTO 9 % (0-6); Hematocrit 31.2 % (37.0-53.0); Hemoglobin 10.6 g/dL (13.5-17.5); IMMATURE GRAN ABSOLUTE AUTO 0.04 K/mm3 (0.00-0.10); IMMATURE GRAN PERCENT AUTO 1 % (0-1); LYMPHOCYTES ABSOLUTE AUTO 1.87 K/mm3 (0.84-5.20); LYMPHOCYTES PERCENT AUTO 30 % (21-46); MONOCYTES ABSOLUTE AUTO 0.40 K/mm3 (0.16-1.47); MONOCYTES PERCENT AUTO 7 % (4-13); Mean Corpuscular HGB Conc 34.0 g/dL (31.5-36.5); Mean Corpuscular Volume 97 fL (80-100); NEUTROPHILS ABSOLUTE AUTO 3.28 K/mm3 (1.96-9.15); NEUTROPHILS PERCENT AUTO 53 % (41-73); NRBC ABSOLUTE 0.00 K/mm3 (0.00-0.02); NRBC Auto 0.0 /100 WBC (0.0-0.2); Platelet Count 199 K/mm3 (150-400); RDW Coefficient Variation 16.1 % (11.7-14.2); RDW Standard Deviation 56.0 fL (35.1-46.3)
[2025-03-02 17:09] LABS: Alanine Aminotransfer (ALT/SGP 49.0 U/L (12-78); Albumin, Blood 4.0 g/dL (3.4-5.0); Albumin/Globulin Ratio 1.3 (0.8-1.8); Anion Gap 8.0 mmol/L (3-11); Aspartate Aminotrans (AST/SGOT 51.0 U/L (12-37); Bilirubin, Total 0.5 mg/dL (0.1-1.0); Blood Urea Nitrogen 18.0 mg/dL (8-24); CO2, Blood 36.0 mmol/L (21-32); Calcium, Blood 10.0 mg/dL (8.5-10.1); Chloride, Blood 97.0 mmol/L (98-108); Creatinine, Blood 4.3 mg/dL (0.60-1.20); Globulin, Blood 3.0 g/dL (2.2-4.0); Glucose, Blood 111.0 mg/dL (70-99); Potassium, Blood 3.7 mmol/L (3.5-5.5); Sodium, Blood 137.0 mmol/L (136-145); Total Protein, Blood 7.0 g/dL (6.4-8.2)
== END 2025-03-02 20:00 | disposition home or self-care (01) ==
LOC: ER 15:48
PROVIDERS: Student in an Organized Health Care Education/Training Program
DX: R06.02 Shortness of breath (principal); R07.89 Other chest pain; R00.2 Palpitations; N18.6 End stage renal disease; Z99.2 Dependence on renal dialysis; Z79.899 Other long term (current) drug therapy
CPT/HCPCS: 36415; 71046; 80053; 83880; 84484; 85025; 93005; 93010; 99285-25